=== PATIENT | female | born 1960 | race African-American/Black ===

== ENCOUNTER 2018-06-22 11:04 | Emergency (ER) | payer MEDICARE, OTHER ==
[~2018-06-22] VITALS: Ht 152.4 cm; Wt 91.0 kg
[2018-06-22] MEDS ORDERED: IBUPROFEN 800MG TABLET PO ONE (14:15)
[2018-06-22] MEDS ORDERED: HYDROCODONE/ACETAMINOPHEN 5/325MG TABLET PO ONE (14:15)
[2018-06-22] MEDS ORDERED: CLONIDINE 0.1MG TABLET PO ONE (14:15)
[2018-06-22 16:06] VITALS: BP 177/91
== END 2018-06-22 16:16 | disposition home or self-care (01) ==
LOC: ER 11:04
DX: S16.1XXA Strain of muscle, fascia and tendon at neck level, initial encounter (principal); S39.012A Strain of muscle, fascia and tendon of lower back, initial encounter; I10 Essential (primary) hypertension; E78.00 Pure hypercholesterolemia, unspecified; V49.88XA Car occupant (driver) (passenger) injured in other specified transport accidents, initial encounter; Y93.89 Activity, other specified; Y92.89 Other specified places as the place of occurrence of the external cause; Y99.8 Other external cause status
CPT/HCPCS: 71045; 72040; 99284